=== PATIENT | female | born 1935 | race African-American/Black ===

== ENCOUNTER 2016-10-19 14:59 | Inpatient (IN) | payer OTHER, BC ==
--- NOTE | 2016-10-19 15:30 | PDOC ---
History of Present Illness - General Stated Complaint: Weakness Time Seen by Provider: 10/19/16 15:09 Exam Limitations: Clinical Condition (DORA Gonzalez on the floor) - History of Present Illness Initial Comments: CHIEF COMPLAINT: 81 y/o afebrile female with PMH HTN, psychiatric issues BIB EMS from [facility] for unwitnessed fall. HISTORY OF PRESENT ILLNESS: According to nurse Carlos, the patient was found in her residence on the floor today. The patient reportedly admitted that she tripped and fell. According to RN the patient has been refusing her medications for the past few weeks and sometimes she refuses to speak. She did not want to walk after she fell and her baseline is that she is ambulatory. The patient shakes her head no when asked if she is in any pain. Vital signs on arrival are within normal limits. REVIEW OF SYSTEMS: (Provided by RN Carlos; patient is poor historian) GENERAL/CONSTITUTIONAL: No fever. HEAD, EYES, EARS, NOSE AND THROAT: No bleeding from head, ears or nose. RESPIRATORY: No cough. GASTROINTESTINAL: No vomiting or diarrhea. SKIN: No rash or easy bruising. NEUROLOGIC: Unknown LOC PSYCHIATRIC: On risperdone. At times refuses to speak. PHYSICAL EXAM: GENERAL: The patient is awake, staring at the floor, responds only to verbal stimuli. HEAD: Normal with no signs of trauma. No hematomas. No bleeding. NECK: No midline cervical spine TTP. Full flexion and extension of cervical spine without pain. ENT: Pupils equal, round and reactive to light, extraocular movements intact, sclera anicteric, conjunctiva clear. No hemotympanum b/l. No bleeding from nose. No dried blood in ear canals. LUNGS: Clear to auscultation bilaterally. Normal excursion. No respiratory distress or use of accessory muscles. CV: RRR, S1/S2, no MRG. Cap refill < 2 sec. ABDOMEN: Soft, non-distended, non-tender even to deep palpation, no hepatomegaly or splenomegaly, no masses. EXTREMITIES: Normal range of motion. No pain with palpation of hips, pelvis or legs. 1+ pitting edema b/l LEs. NEUROLOGICAL: Pt answered only a very few yes/no questions. Gait not assessed. PSYCH: Depressed mood/affect. SKIN: Warm, dry, normal turgor, no rashes or lesions noted. Past History - Past Medical History Allergies/Adverse Reactions: Allergies Allergy/AdvReac Type Severity Reaction Status Date / Time aspirin Allergy Verified 10/19/16 15:43 cefaclor [From Ceclor] Allergy Verified 10/19/16 15:42 Penicillins Allergy Verified 10/19/16 15:44 salicylates Allergy Verified 10/19/16 15:44 Home Medications: Ambulatory Orders Amlodipine Besylate 5 mg PO DAILY 10/19/16 Aromatic Cascara Fluid Extract [Archana Connellya] 473 ml PO HS PRN 10/19/16 Hydrochlorothiazide 25 mg PO DAILY 10/19/16 Melatonin 3 mg PO HS 10/19/16 Risperidone 0.25 mg PO HS 10/19/16 Risperidone 1 mg PO HS 10/19/16 Risperidone Microspheres [Risperdal Consta] 50 mg IM WEEKLY 10/19/16 Simvastatin 10 mg PO HS 10/19/16 Valsartan 80 mg PO DAILY 10/19/16 Heart Score/ECG Review - ECG Intrepretation Comment:: Twelve-lead EKG was performed and reviewed by Dr. Ortega. There is a-fib with rapid ventricular response Impression: Abnormal twelve-lead EKG Ventricular rate: 111bpm ED Treatment Course - LABORATORY CBC & Chemistry Diagram: 10/21/16 05:35 10/21/16 05:35 Medical Decision Making - Medical Decision Making A/P: 81 y/o female with unwitnessed fall at her senior residence, refusing to answer many questions. Plan is as follows: 1. EKG 2. Labs 3. Head CT EKG shows rapid a-fib with a rate of 111bpm. The patient's adult daughters are at bedside and they state that she does have a-fib but is not on a blood thinner anymore. Head CT IMPRESSION: No evidence of acute intracranial pathology. Labs show ARF, elevated troponin. Will admit to hospitalist to telemetry. Spoke with SARAH Pierce who accepts admission on behalf of Dr. Pathak. Spoke with Dr. Robison, slide fasteners inspector, who will consult in the morning. Informed the patient's 2 adult daughters. *DC/Admit/Observation/Transfer Diagnosis at time of Disposition: Acute renal failure, Dehydration, Elevated troponin, CHF (congestive heart failure) - Discharge Dispostion Condition at time of disposition: Fair Admit: Yes - Referrals
[2016-10-19 17:16] LABS: BASOPHIL 0.2 % (0-2.0); MCH 28.9 pg (25.7-33.7); MCHC 32.2 g/dl (32.0-36.0); MEAN CELL VOLUME 89.8 fl (80-96); NEUTROPHILS 88.4 % (42.8-82.8); PLATELET COUNT 231 K/MM3 (134-434); RDW 13.8 % (11.6-15.6); WHITE BLOOD COUNT 7.6 K/mm3 (4.0-10.0)
[2016-10-19] MEDS ORDERED: dilTIAZem HCL 50 MG/10 ML - 10 ML VIAL IVPUSH ONE (17:57)
[2016-10-19 18:00] LABS: URINE APPEARANCE CLEAR; URINE BILIRUBIN NEGATIVE (NEGATIVE); URINE COLOR LTYELLOW; URINE GLUCOSE (UA) NEGATIVE (NEGATIVE); URINE KETONE TRACE (NEGATIVE); URINE LEUK ESTERASE NEGATIVE (NEGATIVE); URINE NITRITE NEGATIVE (NEGATIVE); URINE UROBILINOGEN NEGATIVE E.U./dl (0.2-1.0)
[2016-10-19 18:02] LABS: URINE BLOOD 1+ (NEGATIVE); URINE PROTEIN 2+ (NEGATIVE)
[2016-10-19 18:04] LABS: GRANULAR CASTS 21 /lpf; URINE BACTERIA RARE /hpf (NONE SEEN); URINE MUCUS RARE; URINE RBC 1 /hpf (0-3); URINE WBC 2 /hpf (3-5)
[2016-10-19] MEDS ORDERED: dilTIAZem HCL 50 MG/10 ML - 10 ML VIAL ONE (18:04)
[2016-10-19 18:09] LABS: ALBUMIN 3.4 g/dl (3.4-5.0); BILIRUBIN,TOTAL 0.6 mg/dL (0.2-1.0); CALCIUM 9.4 mg/dL (8.5-10.1); COCKROFT - GAULT 14.229; CREATININE 2.4 mg/dL (0.55-1.02); TOT PROT 7.8 g/dl (6.4-8.2)
[2016-10-19 18:12] LABS: TROPONIN I 0.11 ng/ml (0.00-0.05)
[2016-10-19] MEDS ORDERED: SODIUM CHLORIDE 1,000 ML IV SCH (20:30)
--- NOTE | 2016-10-19 20:31 | PN ---
<Raquel Pathak - Last Filed: 10/19/16 20:30> Teaching Attending Note Name of Resident: Mackenzieyessi Kapoor <Iesha Lr - Last Filed: 10/20/16 00:42> Teaching Attending Note ATTENDING PHYSICIAN STATEMENT I saw and evaluated the patient. I reviewed the resident's note and discussed the case with the resident. I agree with the resident's findings and plan as documented. SUBJECTIVE: 81 yo F with a PMHx of Atrial fibrillation (not on anti-coags) and unspecified psychiatric issues from [facility] for unwitnessed fall today. As per MI nurse, patient was found on the floor in her room. Patient admitted that she tripped and fell when the nurse asked her however, since the incident she has been refusing to walk , speak or taking medications. Upon ED evaluation, patient was found to be in Atrial fibrillation in RVR with rate of 111. According to daughters at bedside, patient had her first fall in March 2016 and was placed in an assisted living facility since then. Upon presentation, patient refuses medications by saying It's too late with medicine and states she doesn't want IV with blood. Patient denies any further complaints. PMHx: HLD, psychitzophrenic, depression PSHx: Noncontributory Social Hx: Noncontributory Allergies: aspirin, cefaclor, Penicillins, salicylates DNR/DNI OBJECTIVE: Last Vital Signs Temp Pulse Resp BP Pulse Ox 96.8 F L 108 H 19 170/85 98 10/19/16 15:00 10/19/16 22:32 10/19/16 22:32 10/19/16 22:32 10/19/16 22:32 GENERAL: Awake, alert, and fully oriented, in no acute distress. +uncooperative HEENT: Atraumatic. PERRLA, EOMI. Moist mucosa. No JVD LUNGS: No distress, speaks full sentences, clear to auscultation bilaterally HEART: +Irregular rate. +Tachycardia. Normal S1 and S2, no murmurs, rubs or gallops, peripheral pulses normal and equal bilaterally. ABDOMEN: Soft, nontender, normoactive bowel sounds. No guarding, no rebound. No masses EXTREMITIES: Normal inspection, Normal range of motion, no edema. No clubbing or cyanosis. NEUROLOGICAL: Cranial nerves II through XII grossly intact. Normal speech, normal gait, no focal sensorimotor deficits. + Depressed mood. +Intermittently abusive language. SKIN: Warm, Dry, normal turgor, no rashes or lesions noted. CBCD WBC 7.6 K/mm3 (4.0-10.0) 10/19/16 16:54 RBC 3.43 M/mm3 (3.60-5.2) L 10/19/16 16:54 Hgb 9.9 GM/dL (10.7-15.3) L 10/19/16 16:54 Hct 30.8 % (32.4-45.2) L 10/19/16 16:54 MCV 89.8 fl (80-96) 10/19/16 16:54 MCHC 32.2 g/dl (32.0-36.0) 10/19/16 16:54 RDW 13.8 % (11.6-15.6) 10/19/16 16:54 Plt Count 231 K/MM3 (134-434) 10/19/16 16:54 MPV 8.0 fl (7.5-11.1) 10/19/16 16:54 CMP Sodium 145 mmol/L (136-145) 10/19/16 16:55 Potassium 4.5 mmol/L (3.5-5.1) 10/19/16 16:55 Chloride 106 mmol/L (98-107) 10/19/16 16:55 Carbon Dioxide 23 mmol/L (21-32) 10/19/16 16:55 Anion Gap 16 (8-16) 10/19/16 16:55 BUN 52 mg/dL (7-18) H 10/19/16 16:55 Creatinine 2.4 mg/dL (0.55-1.02) H 10/19/16 16:55 Creat Clearance w eGFR 19.33 (>60) 10/19/16 16:55 Calcium 9.4 mg/dL (8.5-10.1) 10/19/16 16:55 Total Bilirubin 0.6 mg/dL (0.2-1.0) 10/19/16 16:55 AST 34 U/L (15-37) 10/19/16 16:55 ALT 19 U/L (12-78) 10/19/16 16:55 Alkaline Phosphatase 44 U/L (45-117) L 10/19/16 16:55 Total Protein 7.8 g/dl (6.4-8.2) 10/19/16 16:55 Albumin 3.4 g/dl (3.4-5.0) 10/19/16 16:55 Imaging: EKG Atrial fibrillation L axis deviation with no ST changes Head CT Impression: No evidence of acute intracranial pathology. ASSESSMENT AND PLAN: 1. Afib with uncontrolled rate with RVR--Not on anticoagulants OG VASC score: 3 No anticoagulation therapy as pt is high risk for falls HAS-BLED score of 3 (3.74 bleeds per 100 patient-years) Hold Heparin 2.Microcytic Anemia-- Possible iron deficiency Will get FOBT and Anemia panel 3.Elevated Troponin possibly secondary to demand-- Patient probably with CHF Will r.o ACS Trend troponins Get Echo 4.HTN Hydrochlorothiazide 5.Dyslipidemia Simvastatin 10 mg HS 6.MORA vs CKD Get Urine electrolytes IVF Gentle hydration Monitor for fluid overload 7.Psychiatric disorder On risperidone but noncompliant with medication Restart risperidone PH Q2 - Score: 2 Patient has capacity but is Refusing meds Psych consult- Dr. Robbins requested Has cap however 8. S/p Fall Fall risk precaution PT evaluation for gait. NOTE: Risk and benefits of medications with family at bedside Explained risk of stroke and Patient continues to refuse medications and IV line. Advanced directives and healthcare proxy discussed with daughters at bedside. Documentation prepared by Iesha Lr, acting as medical specialist for Raquel Pathak MD
[2016-10-19] MEDS ORDERED: dilTIAZem HCL 50 MG/10 ML - 10 ML VIAL IVPUSH PRN (20:35)
--- NOTE | 2016-10-19 20:39 | HP ---
CHIEF COMPLAINT: patient nonverbal PCP: Unknown HISTORY OF PRESENT ILLNESS: This is an 81 yo F living at [facility] with PMH of a fib not on a/c, HTN and unspecified psychiatric d/o, who was BIBEMS due to unwitnessed fall. Patient initially spoke a few sentences to report that she tripped and fell and that she is not in pain. During this exam patient refused or in unable to speak , noes not follow commands and seldomly opens eyes. Information obtained from MRNael Per [facility] nurse, patient has been refusing to take all of her medications including risperidone for the past few weeks has occasionally been nonverbal and refused to walk after she fell down. In ED patient found to be in afib with RVR rate 111, treated with cardizem 5 IV. ER course was notable for: (1)Labs (2)EKG, Ct head (3)Cardizem Recent Travel: none reported PAST MEDICAL HISTORY: as above PAST SURGICAL HISTORY: none reported Social History: [facility] Smoking:unknown Alcohol:unknown Drugs: unknown Family History: Allergies aspirin Allergy (Verified 10/19/16 15:43) cefaclor [From Ceclor] Allergy (Verified 10/19/16 15:42) Penicillins Allergy (Verified 10/19/16 15:44) salicylates Allergy (Verified 10/19/16 15:44) HOME MEDICATIONS: Home Medications Medication Instructions Recorded Amlodipine Besylate 5 mg PO DAILY 10/19/16 Aromatic Cascara Fluid Extract 473 ml PO HS PRN 10/19/16 [Cascara Sagrada] Hydrochlorothiazide 25 mg PO DAILY 10/19/16 Melatonin 3 mg PO HS 10/19/16 Risperidone 0.25 mg PO HS 10/19/16 Risperidone 1 mg PO HS 10/19/16 Risperidone Microspheres 50 mg IM WEEKLY 10/19/16 [Risperdal Consta] Simvastatin 10 mg PO HS 10/19/16 Valsartan 80 mg PO DAILY 10/19/16 REVIEW OF SYSTEMS Unable to obtain, patient not responding PHYSICAL EXAMINATION Vital Signs - 24 hr 10/19/16 19:29 Pulse Rate [ 79 Apical] Respiratory 18 Rate Blood Pressure 146/75 [Left Arm] O2 Sat by Pulse 97 Oximetry (%) Laboratory Tests 10/19/16 10/19/16 10/19/16 16:54 16:55 17:35 WBC 7.6 Hgb 9.9 L Hct 30.8 L Plt Count 231 Neutrophils % 88.4 H Sodium 145 Potassium 4.5 Chloride 106 Carbon Dioxide 23 Anion Gap 16 BUN 52 H Creatinine 2.4 H Creat Clearance w eGFR 19.33 Random Glucose 100 Calcium 9.4 Total Bilirubin 0.6 AST 34 ALT 19 Alkaline Phosphatase 44 L Creatine Kinase 711 H Creatine Kinase Index 1.0 CK-MB (CK-2) 6.884 H Troponin I 0.11 H B-Natriuretic Peptide 2578.84 H Total Protein 7.8 Albumin 3.4 Urine Color Ltyellow Urine Appearance Clear Urine pH 5.0 Ur Specific [place] 1.010 Urine Protein 2+ H Urine Glucose (UA) Negative Urine Ketones Trace H Urine Blood 1+ H Urine Nitrite Negative Urine Bilirubin Negative Urine Urobilinogen Negative Ur Leukocyte Esterase Negative Urine RBC 1 Urine WBC 2 Ur Epithelial Cells Rare Urine Bacteria Rare Granular Casts 21 Urine Mucus Rare GENERAL: Awake, lethargic, open eyes occasionally, nonverbal, withdraws from pain HEAD: Normal with no signs of trauma. EYES: Pupils equal, round and reactive to light, sclera anicteric, conjunctiva clear. No lid lag. EARS, NOSE, THROAT: Moist mucous membranes. NECK: supple without lymphadenopathy, JVD, or masses. LUNGS: Breath sounds equal, clear to auscultation bilaterally. HEART: irregularly irregular, normal S1 and S2 grade 2 systolic ejection murmur ABDOMEN: Soft, nontender, not distended, normoactive bowel sounds, no guarding, no rebound, no masses. No hepatomegaly or splenomegaly. MUSCULOSKELETAL: No CVA tenderness. no bony deformities, no abrasions or contusions. head, spine, hips, shoulders elbown and knees nontender UPPER EXTREMITIES: 2+ pulses, warm, well-perfused. No cyanosis. No clubbing. No peripheral edema. LOWER EXTREMITIES: 1+ pulses, warm, well-perfused. No calf tenderness. trace peripheral edema. NEUROLOGICAL: Cranial nerves II-XII grossly intact. tardive dyskinesia movements; 1+ brachial and patellar reflexes PSYCHIATRIC: Cooperative. Good eye contact. Appropriate mood and affect. SKIN: Warm, dry, decreased turgor, no rashes or lesions noted ASSESSMENT/PLAN: This is an 81 yo F living at [facility] with PMH of a fib not on a/c, HTN and unspecified psychiatric d/o, who was BIBEMS due to unwitnessed fall. Has not taken her risperidone for several weeks Need to confirm correct dose of risperidone A fib with RVR -CHADSVASC =4 -not on a/c due to fall risk, not on beta blockers -EKG a fib rate 111, L axis, poor R wave progression, no st changes, no evidence of ACS -currently rate controlled s/p IV cardizem; administer cardizem 30 po q4h PRN for HR >100 bpm since patient refusing IV meds -tele monitoring -Cardio consulted -TFTs, lipid panel, A1c, TTE Elevated trop -0.11; will trend -may be due to tachycardia, dehydration/demand ischemia or patient baseline -ACS suspicion very low MORA vs CKD -bun/creat 52/2.4 -possibly pre renal due to dehydration; patient appears dry -IVF NS @50, may increase p/d TTE -trend creat tardive dyskinesia -likley due to Risperidone withdrawal -Ct head no acute pathology -restart lowest known dose in patients historyu 0.25 HS; will confirm meds and adjust accordingly -speech swallow eval -pt Microcytic Anemia -Hgb 9.9 -chronic vs acute -no sign of bleeding; send stool for occult blood and Fe studies -will obtain prior records from [facility] HTN -noncompliant with meds for several weeks, BP 150's systolic -restart valsartan 80 d -Hold HCTZ 25 d, amlodipine 5 d and slowly restart later HLD vs cardiac PPX -simvastatin 10 HS FEN NS@50 lytes stable Na restricted diet Hep ppx patient immobile at this time Dispo Admit Tele Patient is DNR DNI per daughter, please check for presence of official paperwork Problem List - Problem (1) Acute renal failure Code(s): N17.9 - ACUTE KIDNEY FAILURE, UNSPECIFIED (2) CHF (congestive heart failure) Code(s): I50.9 - HEART FAILURE, UNSPECIFIED (3) Dehydration Code(s): E86.0 - DEHYDRATION (4) Elevated troponin Code(s): R74.8 - ABNORMAL LEVELS OF OTHER SERUM ENZYMES (5) Atrial fibrillation with rapid ventricular response Code(s): I48.91 - UNSPECIFIED ATRIAL FIBRILLATION Visit type - Emergency Visit Emergency Visit: Yes ED Registration Date: 10/19/16 Care time: The patient presented to the Emergency Department on the above date and was hospitalized for further evaluation of their emergent condition. - New Patient This patient is new to me today: Yes Date on this admission: 10/20/16 - Critical Care Critical Care patient: No
[2016-10-19] MEDS ORDERED: risperiDONE 0.5 MG TABLET (FP) ONE (22:11)
[2016-10-19] MEDS ORDERED: HEPARIN NA (PORCINE) 5,000 UNITS/ML 1ML VIAL ONE (22:11)
[2016-10-20] MEDS: risperiDONE 0.25 MG TABLET (FP) PO SCH (00:45)
[2016-10-20] MEDS: ATORVASTATIN CA 10 MG TABLET (FP) PO SCH (00:45)
[2016-10-20] MEDS ORDERED: HEPARIN NA (PORCINE) 5,000 UNITS/ML 1ML VIAL ONE ×2 (01:53→10:31)
[2016-10-20] MEDS: HEPARIN NA (PORCINE) 5,000 UNITS/ML 1ML VIAL SQ SCH ×2 (01:57→11:06)
[2016-10-20] MEDS ORDERED: dilTIAZem HCL 30 MG TABLET (FP) PO PRN (06:30)
[2016-10-20 06:33] LABS: MCH 29.4 pg (25.7-33.7); MCHC 32.8 g/dl (32.0-36.0); MEAN CELL VOLUME 89.6 fl (80-96); MEAN PLT VOLUME 8.2 fl (7.5-11.1); PLATELET COUNT 226 K/MM3 (134-434); RDW 13.8 % (11.6-15.6); WHITE BLOOD COUNT 6.6 K/mm3 (4.0-10.0)
[2016-10-20 07:25] LABS: CALCIUM 9.6 mg/dL (8.5-10.1); MAGNESIUM 2.1 mg/dL (1.8-2.4); PHOSPHOROUS 3.8 mg/dL (2.5-4.9)
[2016-10-20 07:34] LABS: THYROID STIMULATING HORMONE 1.26 uIU/ml (0.358-3.74)
[2016-10-20 09:01] LABS: FERRITIN 103.575 ng/ml (6.9-282.5); TROPONIN I 0.13 ng/ml (0.00-0.05)
[2016-10-20] MEDS ORDERED: VALSARTAN 80 MG TABLET (UD) PO SCH (10:00)
[2016-10-20] MEDS ORDERED: VALSARTAN 80 MG TABLET (UD) ONE (10:31)
[2016-10-20 11:15] VITALS: BMI 28.3
[2016-10-20] MEDS ORDERED: PNEUMOC 13-VAL CONJ-DIP CRM/PF 0.5 ML DISP.SYRIN IM ONE (11:15)
--- NOTE | 2016-10-20 11:34 | EKG ---
Test Reason : Blood Pressure : / mmHG Vent. Rate : 111 BPM Atrial Rate : 267 BPM P-R Int : 000 ms QRS Dur : 084 ms QT Int : 332 ms P-R-T Axes : 000 -37 050 degrees QTc Int : 451 ms ATRIAL FIBRILLATION WITH RAPID VENTRICULAR RESPONSE LEFT AXIS DEVIATION ABNORMAL ECG NO PREVIOUS ECGS AVAILABLE Confirmed by ISHAAN VELA, NOLA ([id number]) on 10/20/2016 11:33:55 AM Referred By: Confirmed By:NOLA QUIROS MD
--- NOTE | 2016-10-20 12:22 | CONSULT ---
Admitting History and Physical - Primary Care Physician PCP: Vanesa Montemayor - Admission History of Present Illness: Per EMR: "Initial Comments: CHIEF COMPLAINT: 81 y/o afebrile female with PMH HTN, psychiatric issues BIB EMS from [facility] for unwitnessed fall. HISTORY OF PRESENT ILLNESS: According to nurse Carlos, the patient was found in her residence on the floor today. The patient reportedly admitted that she tripped and fell. According to RN the patient has been refusing her medications for the past few weeks and sometimes she refuses to speak. She did not want to walk after she fell and her baseline is that she is ambulatory. The patient shakes her head no when asked if she is in any pain." Pt refusing medication from staff, per EMR. History Source: Medical Record Limitations to Obtaining History: Clinical Condition - Past Medical History ...: No - Advance Directives Advance Directives: Yes: Health Care Proxy - Smoking History Smoking history: Unknown if ever smoked Have you smoked in the past 12 months: No - Alcohol/Substance Use Hx Alcohol Use: No History - Admission Reason For Visit: ARF; CHF; ELEVATED TROPONIN LEVEL - Diagnostics X-ray: Report Reviewed CT Scan: Report Reviewed - General Mental Status: Awake and Alert Attention: Distractible Ability to Follow Directions: Fair - Hearing Hearing: Functional Hearing Aide: No Speech Evaluation - Communication Primary Language: [place] Communication: Yes: Simple Responses Oral Expression Ability: Yes: No Impairment - Speech Production Able to Make Needs Known: Yes: WNL Intelligibility: Yes: WNL - Speech Characteristics Voice Loudness: Normal Voice Pitch: Yes: Normal Voice Phonatory-based Quality: Yes: Normal Speech Pattern: Normal Nasal Resonance: Normal Articulation: Yes: Precise - Swallow Evaluation/Bedside Assessment Current Nutritional Intake: Other (refusing all po intake) Recommendations - Speech Evaluation, Impression/Plan Impression: Refusing all po intake. Limited cooperation. Verbal. No dysarthria. No audible congestion. No drooling. - Dysphagia Impressions/Plan Dysphagia Impressions: Ongoing Evaluation *Silent aspiration: cannot be R/O at bedside Recommendations: Other (PO as accepted and tolerated)
--- NOTE | 2016-10-20 13:34 | CON.CARD ---
Consult Consult Specialty:: cardiology Referred by:: comfort Reason for Consultation:: afib and troponin - History of Present Illness Chief Complaint: fall History of Present Illness: This is an 81 yo female from skilled nursing with pmhx as per chart of htn, afib not on AC, and a psychiatric d/o bibems due to unwitnessed fall. As per ER note , patient initially spoke a few sentences to report that she tripped and fell and that she is not in pain. Patient currently does not speak or answer any questions or following commands. To note, patient has been refusing to take her medications including risperidone for past few weeks. EKG with afib with ventricular rate 111bpm. No signs of chf on exam. Cr 2.4 - History Source History Provided By: Medical Record Limitations to Obtaining History: Uncooperative - Past Medical History Cardio/Vascular: Yes: AFIB, HTN ...: No Psych: Yes: Other - Alcohol/Substance Use Hx Alcohol Use: No - Smoking History Smoking history: Unknown if ever smoked Have you smoked in the past 12 months: No Home Medications - Allergies Allergies/Adverse Reactions: Allergies Allergy/AdvReac Type Severity Reaction Status Date / Time aspirin Allergy Verified 10/19/16 15:43 cefaclor [From Ceclor] Allergy Verified 10/19/16 15:42 Penicillins Allergy Verified 10/19/16 15:44 salicylates Allergy Verified 10/19/16 15:44 - Home Medications Home Medications: Ambulatory Orders Amlodipine Besylate 5 mg PO DAILY 10/19/16 Aromatic Cascara Fluid Extract [Cascara Sagrada] 473 ml PO HS PRN 10/19/16 Hydrochlorothiazide 25 mg PO DAILY 10/19/16 Melatonin 3 mg PO HS 10/19/16 Risperidone 0.25 mg PO HS 10/19/16 Risperidone 1 mg PO HS 10/19/16 Risperidone Microspheres [Risperdal Consta] 50 mg IM WEEKLY 10/19/16 Simvastatin 10 mg PO HS 10/19/16 Valsartan 80 mg PO DAILY 10/19/16 Vital Signs: Vital Signs Temperature 98.6 F 10/20/16 11:07 Pulse Rate 94 H 10/20/16 11:07 Respiratory Rate 18 10/20/16 11:07 Blood Pressure 160/62 10/20/16 11:07 O2 Sat by Pulse Oximetry (%) 97 10/20/16 11:07 Respiratory: Yes: CTA Bilaterally Gastrointestinal: Yes: Normal Bowel Sounds, Soft Cardiovascular: Yes: Pulse Irregular. No: Regular Rate and Rhythm JVD: No Heart Sounds: Yes: S1, S2 Edema: No - Other Data Labs, Other Data: CBC, BMP 10/20/16 06:05 10/20/16 06:05 Troponin, BNP 10/20/16 06:05 Troponin I 0.13 H Troponin, BNP 10/20/16 06:05 Troponin I 0.13 H Imaging - Results Chest X-ray: Report Reviewed EKG: Image Reviewed Problem List - Problems (1) Atrial fibrillation with rapid ventricular response Code(s): I48.91 - UNSPECIFIED ATRIAL FIBRILLATION (2) Elevated troponin Code(s): R74.8 - ABNORMAL LEVELS OF OTHER SERUM ENZYMES Assessment/Plan This is an 81 yo female from skilled nursing with pmhx as per chart of htn, afib not on AC, and a psychiatric d/o bibems due to unwitnessed fall. As per ER note , patient initially spoke a few sentences to report that she tripped and fell and that she is not in pain. Patient currently does not speak or answer any questions or following commands. To note, patient has been refusing to take her medications including risperidone for past few weeks. EKG with afib with ventricular rate 111bpm. No signs of chf on exam. Cr 2.4 1) Afib -Would continue diltiazem 30mg po at q6 hours -Not on AC prior to admission due to fall risk. -will monitor on tele 2) Troponins of 0.13 Possibly in setting of MORA as renal function 2.4 and Cr improving to 2.0 with fluids Continue IVF's Repeat troponins 0.11 Will trend third set EKG with no acute st changes. Plan for echocardiogram Not on aspirin given allergy
--- NOTE | 2016-10-20 16:18 | PN ---
Teaching Attending Note Name of Resident: Kristen Crawley ATTENDING PHYSICIAN STATEMENT I saw and evaluated the patient. I reviewed the resident's note and discussed the case with the resident. I agree with the resident's findings and plan as documented. SUBJECTIVE:states she does not know why she is in the hospital but has no complaints. denies CP, SOB, palpitations, N/V/C/D OBJECTIVE: Last Vital Signs Temp Pulse Resp BP Pulse Ox 98 F 95 H 18 163/79 97 10/20/16 14:10 10/20/16 14:10 10/20/16 14:10 10/20/16 14:10 10/20/16 11:07 General NAD A&O x2 (self and place), slow to respond CV S1 S2 irregular no murmur no chest wall tenderness no carotid bruit Lungs CTA B/L anteriorly abdomen soft NT/ND Extremities no pedal edema ASSESSMENT AND PLAN: 81yo F wtih PMH afib not on ac, HTn, and some psychiatric disorder presented to the Er and was admitted for further evaluation of their emergent condition 1. mechanical fall- denies striking her head. states she tripped over her feet. refusing echo and carotid doppler. does not use assitive device. UA negative. PT eval 2. Afib with RVR- on monitor looks like slow aflutter. rate now controlled with oral cardizem. not on anticoagulation due to frequent falls. refused echo. when asked why she said she does not want anything done. explained that theres no risks associated with ultrasound. states she still did not want it. 3. Troponin leak- likely demand ischemia in setting of RVR. small uptrend 0.11- 0.13, will complete for 3 sets as pt is refusing other testing 4. MORA- unknown baseline. call placed out to PMD for baseline. slight improvement with hydration. hold ARB. will cont to monitor avoid nephrotoxic agents 5. normocytic anemia- no signs of bleeding. iron studies pending. txn for hgb < 7. pt will not respond if she had colonoscopy in past. just states she does not want one 6. HTN- uncontrolled. re-start home norvasc dose. will re-start ARB once kidney function improves. hold HCTZ 7. DVT ppx- hep sq
[2016-10-20] MEDS ORDERED: amLODIPine BESYLATE 5 MG TABLET (FP) PO SCH (16:30)
[2016-10-20] MEDS: dilTIAZem HCL 30 MG TABLET (FP) PO SCH (17:49)
[2016-10-20 18:14] LABS: TROPONIN I 0.08 ng/ml (0.00-0.05)
--- NOTE | 2016-10-20 20:04 | PN ---
Physical Exam: SUBJECTIVE: Patient seen and examined by me at bedside. Patient is awake and alert but uncooperative. She knows where she is but does not know why. Otherwise, patient refuses to answer questions and accept any medical therapy. OBJECTIVE: Vital Signs Period Temp Pulse Resp BP Sys/Schilling Pulse Ox Last 24 Hr 98 F-98.6 F 89-108 16-20 135-170/62-105 97-100 GENERAL: The patient is awake, alert, oriented to person and place. uncooperative LUNGS: Breath sounds equal, clear to auscultation bilaterally, no wheezes, no crackles, no accessory muscle use. HEART:tachycardia, irregular rhythm, normal S1 and S2. ABDOMEN: Soft, nontender, nondistended, normoactive bowel sounds. EXTREMITIES: No edema. PSYCH: Apathetic Laboratory Results - last 24 hr 10/20/16 10/20/16 10/20/16 06:05 06:05 06:05 WBC 6.6 RBC 3.26 L Hgb 9.6 L Hct 29.2 L MCV 89.6 MCHC 32.8 RDW 13.8 Plt Count 226 MPV 8.2 Sodium 145 Potassium 4.2 Chloride 109 H Carbon Dioxide 26 Anion Gap 10 BUN 48 H Creatinine 2.0 H Random Glucose 90 Hemoglobin A1c % 5.7 Calcium 9.6 Phosphorus 3.8 Magnesium 2.1 Ferritin 103.575 Creatine Kinase Creatine Kinase Index CK-MB (CK-2) Troponin I 0.13 H Triglycerides 76 Cholesterol 259 H Total LDL Cholesterol 187 H HDL Cholesterol 67 H TSH 1.26 Free T4 10/20/16 10/20/16 06:05 17:15 WBC RBC Hgb Hct MCV MCHC RDW Plt Count MPV Sodium Potassium Chloride Carbon Dioxide Anion Gap BUN Creatinine Random Glucose Hemoglobin A1c % Calcium Phosphorus Magnesium Ferritin Creatine Kinase 519 H D Creatine Kinase Index 0.6 CK-MB (CK-2) 2.860 Troponin I 0.08 H Triglycerides Cholesterol Total LDL Cholesterol HDL Cholesterol TSH Free T4 1.13 Active Medications Generic Name Dose Route Start Last Admin Trade Name Freq PRN Reason Stop Dose Admin Amlodipine Besylate 5 mg 10/20/16 16:30 10/20/16 17:49 Norvasc - PO 5 mg DAILY ROSSY Administration Atorvastatin Calcium 10 mg 10/19/16 22:00 10/20/16 00:45 Lipitor - PO Not Given HS ROSSY Diltiazem HCl 30 mg 10/20/16 06:30 Cardizem - PO Q4H PRN TACHYCARDIA Diltiazem HCl 30 mg 10/20/16 18:00 10/20/16 17:49 Cardizem - PO 30 mg Q6HPO ROSSY Administration Heparin Sodium (Porcine) 5,000 unit 10/19/16 22:00 10/20/16 11:06 Heparin - SQ 5,000 unit BID ROSSY Administration Sodium Chloride 1,000 mls @ 50 mls/hr 10/19/16 20:30 Normal Saline - IV 10/20/16 20:34 ASDIR ROSSY Pneumococcal 13-Valent Conj Vacc 0.5 ml 10/20/16 11:15 Prevnar 13 Syringe - IM 10/20/16 11:16 .ONCE ONE Risperidone 0.25 mg 10/19/16 22:00 10/20/16 00:45 Risperdal - PO Not Given HS [facility] CT HEAD: Negative for acute pathology Chest X-ray: Negative for acute pathology ASSESSMENT/PLAN: Patient is an 81 year old female with a PMHx of A.fib, on no AC due to fall risk , and HTN who presented from [facility] s/p mechanical fall. was found to have A.fib with RVR and admitted for further monitoring and management. Mechanical FALL -Denies chest pain, syncope, dizziness, or shortness of breath prior to fall and states she tripped over her feet. -Head CT negative -U/A negative -Denies any pain -ECHO and Carotid doppler order but patient refused -Physical therapy ordered A.fib with RVR -Did not appreciate A.fib on monitor but possible A.flutter -Rate controlled with Cardizem 30mg Q6H po -Refused IV medications and further medical interventions such as ECHO -Continue to monitor on telemetry Elevated Troponins -Likely from demand ischemia with RVR -First three levels 0.11, 0.13, and 0.08 -Refuses further testing Acute Kidney Injury -No previous history for baseline creatinine -Today 2.0, improved with hydration -Contine IV NS @50mls/hr -Avoid nephrotoxic medication- ARBS on hold Normocytic Anemia -Iron studies pending -Will transfuse if hgb <7 -Monitor CBC HTN -Uncontrolled -Started on Norvasc 5mg daily -Will resume home medication Valsartan and HCTZ once kidney function is stable -Continue to monitor BP Anxiety/Depression/Possible Bipolar Disorder? -Was on Risperidone but group home reports she has been refusing it the last few weeks -Continue Risperidone 0.25mg at bedtime F/E/N -IV NS @50mls/hr -Electrolytes wnl -Sodium controlled diet Prophylaxis -Heparin 5000 units sq BID Disposition -Once HTN controlled will discharge back to group home as patient continues to refuse further management and treatment. Visit type - Emergency Visit Emergency Visit: Yes ED Registration Date: 10/19/16 Care time: The patient presented to the Emergency Department on the above date and was hospitalized for further evaluation of their emergent condition. - New Patient This patient is new to me today: Yes Date on this admission: 10/21/16 - Critical Care Critical Care patient: No
[2016-10-21] MEDS: ATORVASTATIN CA 10 MG TABLET (FP) PO SCH (01:01)
[2016-10-21] MEDS: HEPARIN NA (PORCINE) 5,000 UNITS/ML 1ML VIAL SQ SCH ×2 (01:01→11:14)
[2016-10-21] MEDS: risperiDONE 0.25 MG TABLET (FP) PO SCH (01:01)
[2016-10-21] MEDS: dilTIAZem HCL 30 MG TABLET (FP) PO SCH ×2 (01:01→07:42)
[2016-10-21 06:06] LABS: SERUM IRON 41 ug/dL (27-139); TOTAL IRON BINDING CAPACITY 256 ug/dL (250-450); TRANSFERRIN 213 mg/dL (200-370); UIBC 215 ug/dL (118-369)
[2016-10-21 07:05] LABS: MCH 29.5 pg (25.7-33.7); MEAN CELL VOLUME 89.5 fl (80-96); PLATELET COUNT 189 K/MM3 (134-434); RDW 13.7 % (11.6-15.6)
[2016-10-21 07:41] LABS: COCKROFT - GAULT 32.028; CREATININE 1.6 mg/dL (0.55-1.02)
--- NOTE | 2016-10-21 09:07 | PN ---
Progress Note, Physician Chief Complaint: MORA improving Tele: afib with VR low 100s History of Present Illness: This is an 81 yo female from residential with pmhx as per chart of htn, afib not on AC, and a psychiatric d/o bibems due to unwitnessed fall. As per ER note , patient initially spoke a few sentences to report that she tripped and fell and that she is not in pain. Patient currently does not speak or answer any questions or following commands. To note, patient has been refusing to take her medications including risperidone for past few weeks. EKG with afib with ventricular rate 111bpm. No signs of chf on exam. Cr 2.4 - Current Medication List Current Medications: Active Medications Amlodipine Besylate (Norvasc -) 5 mg PO DAILY [facility] Last Admin: 10/20/16 17:49 Dose: 5 mg Atorvastatin Calcium (Lipitor -) 10 mg PO HS [facility] Last Admin: 10/21/16 01:01 Dose: Not Given Diltiazem HCl (Cardizem -) 30 mg PO Q4H PRN PRN Reason: TACHYCARDIA Diltiazem HCl (Cardizem -) 30 mg PO Q6HPO [facility] Last Admin: 10/21/16 07:42 Dose: Not Given Heparin Sodium (Porcine) (Heparin -) 5,000 unit SQ BID [facility] Last Admin: 10/21/16 01:01 Dose: Not Given Pneumococcal 13-Valent Conj Vacc (Prevnar 13 Syringe -) 0.5 ml IM .ONCE ONE Stop: 10/20/16 11:16 Risperidone (Risperdal -) 0.25 mg PO [facility] Last Admin: 10/21/16 01:01 Dose: Not Given - Objective Vital Signs: Vital Signs Temperature 99.4 F 10/21/16 02:00 Pulse Rate 107 H 10/21/16 02:00 Respiratory Rate 18 10/21/16 02:00 Blood Pressure 162/105 10/21/16 02:00 O2 Sat by Pulse Oximetry (%) 99 10/20/16 21:00 Constitutional: Yes: No Distress Neck: Yes: Supple Cardiovascular: Yes: Tachycardia, Pulse Irregular, Murmur (3/6 HSM), S1, S2 Respiratory: Yes: CTA Bilaterally Gastrointestinal: Yes: Normal Bowel Sounds, Soft Edema: No Labs: CBC, BMP 10/21/16 05:35 10/21/16 05:35 - ....Imaging Chest X-ray: Report Reviewed Problem List - Problems (1) Atrial fibrillation with rapid ventricular response Code(s): I48.91 - UNSPECIFIED ATRIAL FIBRILLATION (2) Elevated troponin Code(s): R74.8 - ABNORMAL LEVELS OF OTHER SERUM ENZYMES Assessment/Plan This is an 81 yo female from residential with pmhx as per chart of htn, afib not on AC, and a psychiatric d/o bibems due to unwitnessed fall. As per ER note , patient initially spoke a few sentences to report that she tripped and fell and that she is not in pain. Patient currently does not speak or answer any questions or following commands. To note, patient has been refusing to take her medications including risperidone for past few weeks. EKG with afib with ventricular rate 111bpm. No signs of chf on exam. Cr 2.4 1) Afib/flutter -So patient has been refusing most of medications. BP running high and HR mildly elevated. Seems like patient is agreeing to take a blood pressure med this morning so will give her long acting dose of diltiazem 120mg (if order short acting q6 dosing she will likely refuse most of the doses) -Not on AC prior to admission due to fall risk. 2) Troponins of 0.13 Likely in setting of MORA as renal function 2.4 and Cr improving to 1.6 Continue IVF's Repeat troponins 0.08 EKG with no acute st changes. Patient refused echo Not on aspirin given allergy longterm as an outpatient should be on statin and consider plavix since has an aspirin allergy.
--- NOTE | 2016-10-21 11:19 | PN ---
Teaching Attending Note Name of Resident: Kristen Crawley ATTENDING PHYSICIAN STATEMENT I saw and evaluated the patient. I reviewed the resident's note and discussed the case with the resident. I agree with the resident's findings and plan as documented. SUBJECTIVE:resting comfortable. alert, refusing to respond to questions. refuses physical exam OBJECTIVE: Last Vital Signs Temp Pulse Resp BP Pulse Ox 99.4 F 107 H 18 162/105 99 10/21/16 02:00 10/21/16 02:00 10/21/16 02:00 10/21/16 02:00 10/20/16 21:00 ASSESSMENT AND PLAN: 81yo F wtih PMH afib not on ac, HTn, and some psychiatric disorder presented to the Er and was admitted for further evaluation of their emergent condition 1. mechanical fall- denies striking her head. no repeat episodes. history of falls. awaiting PT eval but will likely refuse 2. Afib with RVR-Rate <110 on monitor. been refusing most of her meds (received one dose of cardizem yesterday). convert to CD 120mg as more likely to take once daily medication over multiple times. refused echo and carotid doppler. 3. Troponin leak- likely demand ischemia in setting of RVR. peakes at 0.13 and trended down. likely not ischemic. 4. MORA- unknown baseline. continues to improve. will re-start ARB on discharge. avoid nephrotoxic agents 5. normocytic anemia- no signs of bleeding. iron studies negative. refusing all testing at this time can work up as outpatient if pt is willing to. 6. HTN- uncontrolled. likely due to refusing medication. encouraged her need to take medications. will try to reduce amount of medications to obtain compliance. cardizem long acting and ARB. 7. DVT ppx- hep sq 8. will check BP after medications administered. if improved will d/c to [facility].
--- NOTE | 2016-10-21 14:17 | DS ---
Physical Exam: SUBJECTIVE: Patient seen and examined by me at bedside. Patient continues to refuse medicine and any medical intervention. Patient remains nonverbal and just nods her head. OBJECTIVE: Vital Signs Period Temp Pulse Resp BP Sys/Schilling Pulse Ox Last 24 Hr 97.8 F-99.4 F 95-107 18-20 137-163/75-105 97-99 PHYSICAL EXAM GENERAL: The patient is awake, alert, no acute distress HEAD: Normal with no signs of trauma. EYES: Sclera anicteric, conjunctiva clear. LUNGS: Breath sounds equal, clear to auscultation bilaterally, no wheezes, no crackles, no accessory muscle use. HEART: Tachycardic, irregular rhythm. Normal S1 and S2 without murmur, rub or gallop. ABDOMEN: Soft, nontender, nondistended, normoactive bowel sounds, no guarding. EXTREMITIES: No peripheral edema. PSYCH: Apathetic LABS Laboratory Results - last 24 hr 10/20/16 10/20/16 10/21/16 15:00 17:15 05:35 WBC 6.0 RBC 3.20 L Hgb 9.5 L Hct 28.6 L MCV 89.5 MCHC 33.0 RDW 13.7 Plt Count 189 MPV 8.0 Sodium Potassium Chloride Carbon Dioxide Anion Gap BUN Creatinine Random Glucose Calcium Iron 41 TIBC 256 Iron Saturation 16 Transferrin 213 Creatine Kinase 519 H D Creatine Kinase Index 0.6 CK-MB (CK-2) 2.860 Troponin I 0.08 H 10/21/16 05:35 WBC RBC Hgb Hct MCV MCHC RDW Plt Count MPV Sodium 144 Potassium 3.9 Chloride 106 Carbon Dioxide 26 Anion Gap 12 BUN 37 H D Creatinine 1.6 H Random Glucose 93 Calcium 9.0 Iron TIBC Iron Saturation Transferrin Creatine Kinase Creatine Kinase Index CK-MB (CK-2) Troponin I HOSPITAL COURSE: Patient is an 81 year old female with a PMHx of A.fib, no AC due to fall risk, HTN, psychiatric issues but possibly Bipolar disorder, who presented from [facility] s/p unwitnessed mechanical fall but with no trauma. As per custodial, after the incident patient was refusing to speak, take medication, or walk. Patient had negative head CT but was found to have A.fib with RVR and MORA and was admitted to telemetry. Throughout her stay patient has refused her medications and any medical interventions such as ECHO and Doppler. Patient was started on Cardizem for A.fib but has continuously refused to take her medication. She was given fluids for her MORA, which has improved. Patient is hemodynamically stable but remains in A.fib. She will be discharged with new home medication Cardizem for A.fib control. Date of Admission:10/19/16 Date of Discharge: 10/21/16 Minutes to complete discharge: 45 Discharge Summary Reason For Visit: ARF; CHF; ELEVATED TROPONIN LEVEL Current Active Problems Accident due to mechanical fall without injury (Acute) Acute renal failure (Acute) Atrial fibrillation with rapid ventricular response (Acute) Dehydration (Acute) Elevated troponin (Acute) Condition: Fair - Instructions Diet, Activity, Other Instructions: -Patient may resume her regular diet -She may resume her regular activities -Will prescribe a new medication Cardizem 120mg daily for her Atrial Fibrillation -Will lower her High blood pressure medication -Patient has been refusing medication and should be encouraged to take her medication. Please monitor her medication intake -If she begins to have any altered mental status, fevers > 101.0 F without adequate medication control, severe vomiting, return to the Emergency department. Referrals: STAFF,NOT ON [Primary Care Provider] - Disposition: [facility]ION [facility]ILITY - Home Medications Comprehensive Discharge Medication List: Ambulatory Orders Amlodipine Besylate 5 mg PO DAILY 10/19/16 Aromatic Cascara Fluid Extract [Cascara [place]] 473 ml PO HS PRN 10/19/16 Melatonin 3 mg PO HS 10/19/16 Risperidone 1 mg PO HS 10/19/16 Risperidone Microspheres [Risperdal Consta 50Mg -] 50 mg IM WEEKLY 10/19/16 Simvastatin 10 mg PO HS 10/19/16 Diltiazem Cd [Cardizem Cd -] 120 mg PO DAILY cap 10/21/16 Valsartan 40 mg PO DAILY #0 tablet 10/21/16 This patient is new to me today: No Emergency Visit: Yes ED Registration Date: 10/19/16 Care time: The patient presented to the Emergency Department on the above date and was hospitalized for further evaluation of their emergent condition. Critical Care patient: No - Discharge Referral Referred to [facility] Med [facility] No
[2016-10-21 14:31] VITALS: TEMP 98.4
[2016-10-21 14:33] VITALS: BP 152/87; PULSE 98
== END 2016-10-21 16:57 | DRG 683 ==
LOC: JER 14:59 → JERBED 19:13 → J4W 10-20 13:27
PROVIDERS: ADMIT Internal Medicine; ATTEND Internal Medicine
DX: N17.9 Acute kidney failure, unspecified (principal); I48.92 Unspecified atrial flutter; F19.939 Other psychoactive substance use, unspecified with withdrawal, unspecified; I48.91 Unspecified atrial fibrillation; E86.0 Dehydration; I10 Essential (primary) hypertension; F32.9 Major depressive disorder, single episode, unspecified; F41.9 Anxiety disorder, unspecified; F99 Mental disorder, not otherwise specified; Z91.14 Patient's other noncompliance with medication regimen; D50.9 Iron deficiency anemia, unspecified; E78.5 Hyperlipidemia, unspecified
CPT/HCPCS: 36415; 70450-TC; 71010-TC; 80048; 80053; 80061; 81003; 81015; 82550; 82553; 82728; 83036; 83540; 83550; 83721; 83735; 83880; 84100; 84439; 84443; 84466; 84484; 85025; 85027; 87086; 93005; 93010; 99285-25; J1644